=== PATIENT | female | born 1990 | race American Indian/Alaskan Native ===

== ENCOUNTER 2018-03-16 17:50 | Emergency (ER) | payer OTHER ==
[2018-03-16 21:01] LABS: HCG Qualitative,Urine Negative (Negative)
[2018-03-16] MEDS ORDERED: MOTRIN PO ONE (22:55)
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
[2018-03-17 02:23] VITALS: BP 124/76
== END 2018-03-17 00:15 | disposition home or self-care (01) ==
LOC: ED 17:50
DX: T14.8XXA Other injury of unspecified body region, initial encounter (principal); M54.2 Cervicalgia; M54.6 Pain in thoracic spine; V49.49XA Driver injured in collision with other motor vehicles in traffic accident, initial encounter; Y92.89 Other specified places as the place of occurrence of the external cause; Y99.8 Other external cause status; Y93.89 Activity, other specified
CPT/HCPCS: 72040; 72070; 72100; 81025